=== PATIENT | male | born 1950 | race Caucasian/White ===

== ENCOUNTER 2017-11-29 13:47 | Emergency (ER) | payer MEDICARE ==
--- NOTE | 2017-11-29 17:03 | UC ---
Skin Complaint HPI - HPI Summary HPI Summary: PT HAS HAD 2-3 YEARS OF A CYSTIC LESION DISTAL RIGHT 3RD FINGER (OVERLYING DISTAL PHALANX DORSAL SURFACE) THAT COMES AND GOES. HAS HAD I&D IN THE PAST WITH CLEAR MATERIAL EXPRESSED. OVER THE PAST FEW WEEKS IT HAS BECOME LARGER IN SIZE AND LOOKS BLOODY. PAIN IS WORSE. PT DENIES ANY TRAUMA. 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 - History of Current Complaint Chief Complaint: UCUpperExtremity Time Seen by Provider: 11/29/17 15:46 Stated Complaint: FINGER PAIN Hx Obtained From: Patient Onset/Duration: Gradual Onset, Lasting Weeks, Still Present Timing: Constant Onset Severity: Moderate Current Severity: Moderate Pain Intensity: 8 Pain Scale Used: 0-10 Numeric Location: Hand (Right) - RIGHT 3RD FINGER Character: Pain, Raised Aggravating Factor(s): Touch Alleviating Factor(s): Nothing - Allergy/Home Medications Allergies/Adverse Reactions: Allergies Allergy/AdvReac Type Severity Reaction Status Date / Time No Known Allergies Allergy Verified 11/29/17 14:56 Home Medications: Home Medications Calcipotriene 0.0005 gm TP DAILY 11/29/17 [History Confirmed 11/29/17] Review of Systems Constitutional: Negative Skin: Other - LESION RIGHT 3RD FINGER Respiratory: Negative Cardiovascular: Negative Gastrointestinal: Negative Musculoskeletal: Arthralgia All Other Systems Reviewed And Are Negative: Yes PMH/Surg Hx/FS Hx/Imm Hx - Additional Past Medical History Additional PMH: PSORIASIS Endocrine History: Hypothyroidism Cardiovascular History: Hypertension Psychological History: Depression - Surgical History Surgical History: Yes Surgery Procedure, Year, and Place: UMBILICAL HERNIA; TONSILECTOMY - Family History Known Family History: Positive: Hypertension - Social History Alcohol Use: Weekly Substance Use Type: None Smoking Status (MU): Former Smoker - Immunization History Most Recent Tetanus Shot: more than 10 years Physical Exam Triage Information Reviewed: Yes Appearance: Well-Appearing, No Pain Distress, Well-Nourished Vital Signs: Initial Vital Signs Temp 98.4 F 11/29/17 14:48 Pulse 62 11/29/17 14:48 Resp 15 11/29/17 14:48 BP 132/85 11/29/17 14:48 Pulse Ox 98 11/29/17 14:48 Vital Signs Reviewed: Yes Eyes: Positive: Conjunctiva Clear ENT: Positive: Hearing grossly normal Neck: Positive: Supple Respiratory: Positive: No respiratory distress, No accessory muscle use Cardiovascular: Positive: Pulses Normal Abdomen Description: Positive: Soft Neurological: Positive: Alert Psychological: Positive: Age Appropriate Behavior Skin: Positive: Other - 6MM X 4MM CYSTIC LESION DORSAL SURFACE RIGHT 3RD FINGER OVERLYING DISTAL PHALANX Course/Dx - Course Course Of Treatment: TIME OUT DONE. I&D PERFORMED. BLOODY GELATINOUS MATERIAL EXPRESSED. FOLLOW-UP DERM IN 2 DAYS. FOLLOW-UP ORTHO TO DISCUSS DEFINITIVE TREATMENT. - Diagnoses Provider Diagnoses: CYSTIC LESION RIGHT 3RD FINGER Procedures - Incision and Drainage Site: DISTAL RIGHT 3RD FINGER Anesthesia: Other - NONE Instrument(s): Scalpel - 11 BLADE Discharge - Discharge Plan Condition: Stable Disposition: HOME Referrals: Osman Kelley MD [Primary Care Provider] - If Needed Jose Guadalupe Rosas MD [Medical Doctor] - 1 Week Additional Instructions: YOUR CYST WAS OPENED AND BLOODY GELATINOUS MATERIAL WAS EXPRESSED. KEEP YOUR DERM APPT IN 2 DAYS AND FOLLOW-UP WITH ORTHO IF EXCISION IS DESIRED.
[2017-11-29 17:08] VITALS: BP 131/74
== END 2017-11-29 17:12 | disposition home or self-care (01) ==
LOC: UCEAST 13:47
DX: L72.3 Sebaceous cyst (principal); L40.9 Psoriasis, unspecified; E03.9 Hypothyroidism, unspecified; I10 Essential (primary) hypertension; F32.9 Major depressive disorder, single episode, unspecified; Z87.891 Personal history of nicotine dependence
CPT/HCPCS: 10060; 99211; G0463

== ENCOUNTER 2018-02-19 13:42 | Day surgery (SDC) | payer MEDICARE ==
[~2018-02-19 13:42] MED LIST: Buffered Lidocaine 0.9% SYRIN* 5 ML/SYR SYRINGE INTRADERM ONE; Dexamethasone TAB* 4 MG PO ONE; DiMENhydriNATE IV* 50 MG/ML VIAL IV PUSH PRN; Famotidine TAB* 20 MG PO ONE; Morphine INJ* 2 MG/ML 1 ML CARPUJECT IV PRN; Naloxone* 0.4 MG/ML 1 ML VIAL IV PRN; Ondansetron INJ* 2 MG/ML VIAL ONE; PROCHLORPERAZINE INJ 5 MG/ML 2 ML VIAL IV PRN; fentaNYL* 50 MCG/ML 2 ML VIAL (100 MCG VIAL) IV PRN; oxyCODONE/Acetamin 5/325 MG* TAB PO PRN
[2018-02-19] MEDS ORDERED: ceFAZolin 2 GM PREMIX (*) 2 GM/50 ML BAG IVPB ONE (13:56)
[2018-02-19] MEDS ORDERED: Ondansetron ODT TAB* 4 MG ONE (13:56)
[2018-02-19] MEDS ORDERED: Dexamethasone TAB* 4 MG ONE (13:56)
[2018-02-19] MEDS ORDERED: Famotidine TAB* 20 MG ONE (13:56)
[2018-02-19] MEDS ORDERED: Midazolam* 1 MG/ML 5 ML VIAL (5 MG) ONE (14:34)
[2018-02-19] MEDS ORDERED: fentaNYL* 50 MCG/ML 2 ML VIAL (100 MCG VIAL) ONE (14:34)
[2018-02-19] MEDS ORDERED: Labetalol IV* 5 MG/ML 20 ML VIAL ONE (14:57)
[2018-02-19] MEDS ORDERED: Lidocaine 1% INJ* 10 MG/ML 30 ML SDV ONE (14:57)
[2018-02-19] MEDS ORDERED: Bupivacaine 0.25% SDV* 30 ML ONE (14:57)
[2018-02-19] MEDS ORDERED: Ketorolac INJ* 30 MG/ML 1 ML VIAL ONE (15:29)
[2018-02-19] MEDS ORDERED: Propofol* 10 MG/ML 20 ML BTL IV PUSH ONE (15:29)
[2018-02-19] MEDS ORDERED: Lidocaine 2% PF * 5 ML VIAL ONE (15:29)
[2018-02-19] MEDS ORDERED: Flumazenil* 0.1 MG/ML 5 ML MDV ONE (15:46)
[2018-02-19 16:04] VITALS: BP 133/87
--- NOTE | 2018-02-20 07:31 | OP ---
DATE OF OPERATION: 02/19/18 [facility] DATE OF : 50 SURGEON: Jose Guadalupe Rosas MD [employer] DEVELOPER: MILLICENT Alvarez. An office clerk assistant was needed for the entirety of the case to help with positioning, retraction, and utilized throughout all portions of the case. ANESTHESIOLOGIST: Dr. Horta. ANESTHESIA: General with local with MAC. PRE-OP DIAGNOSIS: Right carpal tunnel syndrome. POST-OP DIAGNOSIS: Right carpal tunnel syndrome. OPERATIVE PROCEDURE: Open right carpal tunnel release. COMPLICATIONS: None. ESTIMATED BLOOD LOSS: Minimal. TOURNIQUET TIME: 13 minutes at 250 mmHg. INDICATIONS: Brain Cain is a 67-year-old gentleman who has had a 5-year history of carpal tunnel syndrome, his symptoms more on the right side than the left side. He was seen initially in [place] and was offered treatment, but he relocated to [place] and decided to undergo treatment here. Risks and benefits of surgery were discussed at length, included but not limited to bleeding; infection; damage to nerves, vessels, surrounding structures; wound nonhealing; persistent pain; need for further surgery; scaring; stiffness; incomplete relief of symptoms; risks of anesthesia; persistent pain; and need for further surgery. DESCRIPTION OF PROCEDURE: The patient was greeted in the preoperative area by the attending surgeon. Correct extremity was marked. Consent was confirmed. The patient was then brought back to the operating suite where he was placed in the supine position on the operating table. His hand was extended on the arm table. An unsterile tourniquet was placed high on the forearm. He then underwent local monitored anesthesia care, after which the right arm was prepped and draped in the usual sterile fashion with chlorhexidine soap and alcohol wipe and a final prep with ChloraPrep. After appropriate surgical pause indicating site, side, procedure, and administration of antibiotics, the incision was injected with 10 cc of 1% lidocaine plain. The limb was then exsanguinated using an Esmarch and the tourniquet inflated to 250 mmHg. A 15 blade was then used to make an incision using the radial border of the fourth metacarpal in the center of the palm over the carpal tunnel. The 15 blade was used to make the incision. Soft tissue was carefully dissected to expose the palmar fascia which was incised, which exposed the carpal tunnel. A fresh 15 blade was then used to make the incision to break through the contents of the carpal tunnel ulnarly. Once this was done , the dissection was taken distally first to make sure that it was free and there were no areas of compression. Then proximally the dissection was taken so that the entire carpal tunnel was released, checking all the way to the wrist crease to make sure there were no other areas of compression. Once this was done, free air was used to make sure that there was no other evidence of carpal tunnel and the wrist was taken through a range of motion. There was no evidence of compression. The nerve appeared to be in good condition. There was synovitis that was apparent as well. The wound was then copiously irrigated with sterile saline. The wound was closed with 4-0 nylon in an interrupted fashion. The wound was injected with 0.25% Marcaine plain about 9 cc. Sterile dressings were applied. The tourniquet was deflated after a time of 13 minutes. Well-padded dressing was placed. His extremities were pink and well perfused. He was awoken from anesthesia and transferred to PACU in stable condition. POSTOPERATIVE PLAN: He will be allowed finger and wrist, range of motion. He can take dressing off at the end of the week and start working on gentle wrist range of motion. He should keep the incision dry until I see him back in the office. I will see him back in approximately 14 days. DVT prophylaxis considered but deferred due to no previous personal or family history. [id number]/[facility] #: [id number] ELIZABETH
== END 2018-02-19 16:28 | disposition home or self-care (01) ==
LOC: OREAST 13:42
PROVIDERS: ATTEND Orthopaedic Surgery
DX: G56.01 Carpal tunnel syndrome, right upper limb (principal); E07.9 Disorder of thyroid, unspecified; R03.0 Elevated blood-pressure reading, without diagnosis of hypertension; K21.9 Gastro-esophageal reflux disease without esophagitis
CPT/HCPCS: A9270-GY; J0690; J1885; J2250; J2704; J3010; J8540

== ENCOUNTER 2018-11-21 02:20 | Emergency (ER) | payer MEDICARE ==
[2018-11-21] MEDS ORDERED: NS 0.9% 1000 ML** 1,000 ML IV ONE (02:54)
[2018-11-21] MEDS ORDERED: Ondansetron INJ* 2 MG/ML VIAL IV ONE (02:54)
[2018-11-21] MEDS ORDERED: Morphine VIAL* 10 MG/ML 1 ML VIAL IV ONE (02:55)
[2018-11-21 03:07] LABS: ABS Basophils 0.1 10^3/ul (0-0.2); ABS Eosinophils 0.2 10^3/ul (0-0.6); ABS Lymphocytes 1.5 10^3/ul (1.0-4.8); ABS Monocytes 0.4 10^3/ul (0-0.8); ABS Neutrophils 3.7 10^3/ul (1.5-7.7); ABS Nucleated RBC 0 10^3/ul; Eosinophil % 3.3 %; Hematocrit 43 % (42-52); Hemoglobin 14.6 g/dl (14.0-18.0); Lymphocyte % 25.9 %; Mean Corpuscular HGB Conc 34 g/dl (31-36); Mean Corpuscular Hemoglobin 32 pg (27-31); Mean Corpuscular Volume 94 fL (80-94); Nucleated Red Blood Cells % 0; Platelet Count 208 10^3/ul (150-450); Red Blood Count 4.63 10^6/ul (4.00-5.40); Red Cell Distribution Width 13 % (10.5-15); White Blood Count 5.8 10^3/ul (3.5-10.8)
--- NOTE | 2018-11-21 03:13 | ED ---
Abdominal Pain/Male - HPI Summary HPI Summary: Patient is a 68 y/o M presenting to ED with complaints of right sided abdominal pain with some radiation to testicles. Pain onset suddenly at 0000 today, is characterized as dull, and has been intermittent since onset. He denies fever, N /V/D, radiation of pain to back. No PMHx of kidney stones, but patient has PMHx of cirrhosis. He is on Lisinopril as well. On triage, pain is rated 10/10, nothing is noted to aggravate/alleviate Sx. Home medications and allergies are reviewed. - History of Current Complaint Chief Complaint: EDAbdPain Stated Complaint: FLANK PAIN Time Seen by Provider: 11/21/18 02:42 Hx Obtained From: Patient Onset/Duration: Lasting Hours - since 0000 today, Still Present Timing: Intermittent, Lasting Hours - since 0000 today Severity Currently: Severe - 10/10 Pain Intensity: 10 Pain Scale Used: 0-10 Numeric - 10/10 Location: Other - right sided Radiates: Yes Radiates to: Other - testicles Character: Dull Aggravating Factor(s): Nothing Alleviating Factor(s): Nothing Associated Signs And Symptoms: Negative: Fever, Back Pain, Nausea, Vomiting, Diarrhea - Allergies/Home Medications Allergies/Adverse Reactions: Allergies Allergy/AdvReac Type Severity Reaction Status Date / Time No Known Allergies Allergy Verified 02/19/18 14:20 PMH/Surg Hx/FS Hx/Imm Hx Endocrine/Hematology History: Reports: Hx Thyroid Disease - MAGDALENO'S, Hx Anemia - AUTOIMMUNE HEMOLYTIC ANEMIA Cardiovascular History: Reports: Hx Hypertension - ON MEDICATION FOR GI History: Reports: Hx Gastroesophageal Reflux Disease - TAKES CALCIUM CARB AT NIGHT, Hx Hiatal Hernia, Hx Irritable Bowel Musculoskeletal History: Reports: Hx Arthritis - BACK Denies: Hx Osteoporosis Sensory History: Reports: Hx Contacts or Glasses - GLASSES Denies: Hx Hearing Aid Opthamlomology History: Reports: Hx Contacts or Glasses - GLASSES Psychiatric History: Reports: Hx Anxiety - HX OF, Hx Depression - HX OF - Surgical History Surgery Procedure, Year, and Place: UMBILICAL HERNIA REPAIR; TONSILECTOMY. 1991 -RHINOPLASTY. EGD-10/2017 Hx Anesthesia Reactions: No Infectious Disease History: No Infectious Disease History: Denies: Traveled Outside the [place] in Last 30 Days - Family History Known Family History: Positive: Hypertension - Social History Alcohol Use: None Alcohol Amount: 2-3 DRINKS ONE TIME PER WEEK Substance Use Type: Reports: None Substance Use Comment - Amount & Last Used: OCCASIONAL USE OF MARIJUANA Smoking Status (MU): Never Smoked Tobacco Review of Systems Negative: Fever Positive: Abdominal Pain - with radiation to testicles, no radiation to back . Negative: Vomiting, Diarrhea, Nausea All Other Systems Reviewed And Are Negative: Yes Physical Exam - Summary Physical Exam Summary: VITAL SIGNS: Reviewed. GENERAL: Patient is a well-developed and nourished male who is lying comfortable in the stretcher. Patient is not in any acute respiratory distress. HEAD AND FACE: No signs of trauma. No ecchymosis, hematomas or skull depressions. No sinus tenderness. EYES: PERRLA, EOMI x 2, No injected conjunctiva, no nystagmus. EARS: Hearing grossly intact. Ear canals and tympanic membranes are within normal limits. MOUTH: Oropharynx within normal limits. NECK: Supple, trachea is midline, no adenopathy, no JVD, no carotid bruit, no c- spine tenderness, neck with full ROM. CHEST: Symmetric, no tenderness at palpation LUNGS: Clear to auscultation bilaterally. No wheezing or crackles. CVS: Regular rate and rhythm, S1 and S2 present, no murmurs or gallops appreciated. ABDOMEN: Soft, mild RLQ tenderness is noted. No signs of distention. No rebound no guarding, and no masses palpated. Bowel sounds are normal. EXTREMITIES: FROM in all major joints, no edema, no cyanosis or clubbing. NEURO: Alert and oriented x 3. No acute neurological deficits. Speech is normal and follows commands. SKIN: Dry and warm Triage Information Reviewed: Yes Vital Signs On Initial Exam: Initial Vitals Temp Pulse Resp BP Pulse Ox 96.4 F 69 16 144/87 97 11/21/18 02:25 11/21/18 02:25 11/21/18 02:25 11/21/18 02:25 11/21/18 02:25 Vital Signs Reviewed: Yes Diagnostics - Vital Signs Vital Signs Temp Pulse Resp BP Pulse Ox 11/21/18 02:25 96.4 F 69 16 144/87 97 - Laboratory Result Diagrams: 11/21/18 03:00 11/21/18 03:00 Lab Statement: Any lab studies that have been ordered have been reviewed, and results considered in the medical decision making process. - CT abd/pel ct CT Interpretation Completed By: Radiologist Summary of CT Findings: CT ABD/PEL IMPRESSION: 1. Colonic diverticulosis with early acute sigmoid diverticulitis. 2. No obstructing stones or hydronephrosis. 3. A small hiatal hernia. This report was reviewed by ED physician. Re-Evaluation - Re-Evaluation First Eval Re-Evaluation Time: 04:19 Comment: Results of labs and tests were discussed with patient, he will be discharged to home and follow up with PCP, he is agreeable with this. Abdominal Pain Fem Course/Dx - Course Course Of Treatment: Patient is a 68 y/o M presenting to ED with complaints of right sided abdominal pain with some radiation to testicles. Pain onset suddenly at 0000 today, is characterized as dull, and has been intermittent since onset. He denies fever, N/V/D, radiation of pain to back. No PMHx of kidney stones, but patient has PMHx of cirrhosis. He is on Lisinopril as well. On physical exam RLQ tenderness is noted. Labs showed MCH 32, BUN 26, BUN/ creatinine ratio 22.8, glucose 104. UA showed trace ketones, ascorbic acid present. CT ABD/PEL IMPRESSION: 1. Colonic diverticulosis with early acute sigmoid diverticulitis. 2. No obstructing stones or hydronephrosis. 3. A small hiatal hernia. Results of labs and tests were discussed with patient, he will be discharged to home and follow up with PCP, he is agreeable with this. During ED course, patient received fluids, Flagyl 500 mg and Levaquin 500 mg PO ED ONCE - Diagnoses Provider Diagnoses: Diverticulitis Discharge - Sign-Out/Discharge Documenting (check all that apply): Patient Departure - DISCHARGE Patient Received Moderate/Deep Sedation with Procedure: No - NO PROCEDURES DONE - Discharge Plan Condition: Stable Disposition: HOME Prescriptions: Levofloxacin TAB* [Levaquin TAB*] 500 mg PO DAILY #7 tab metroNIDAZOLE [Flagyl 500 MG TAB] 500 mg PO TID #20 tab Patient Education Materials: Diverticulitis (ED) Referrals: Osman Kelley MD [Primary Care Provider] - 2 Days Additional Instructions: RETURN TO THE EMERGENCY DEPARTMENT FOR CHANGING OR WORSENING SYMPTOMS. FOLLOW UP WITH PRIMARY CARE PHYSICIAN IN 1-2 DAYS. - Attestation Statements Document Initiated by Scribe: Yes Documenting Scribe: JOSAFAT SALDIVAR Provider For Whom Scribe is Documenting (Include Credential): LUZ MARIA ENRIQUEZ MD Scribe Attestation: I, JOSAFAT SALDIVAR, scribed for LUZ MARIA ENRIQUEZ MD on 11/21/18 at 0516. Status of Scribe Document: Ready
[2018-11-21 03:22] LABS: Albumin 4.3 g/dL (3.2-5.2); Albumin/Globulin Ratio 1.7 (1-3); BUN/Creatinine Ratio 22.8 (8-20); C Reactive Protein 3.8 mg/L (<8.01); Calcium 9.5 mg/dL (8.6-10.3); EGFR African American 77.3 (>60); EGFR Non-African American 63.9 (>60); Globulin 2.6 g/dL (2-4); Magnesium 2.2 mg/dL (1.9-2.7); Total Bilirubin 0.4 mg/dL (0.2-1.0); Total Protein 6.9 g/dL (6.4-8.9)
[2018-11-21] MEDS ORDERED: Levofloxacin TAB* 500 MG PO ONE (04:20)
[2018-11-21] MEDS ORDERED: metroNIDAZOLE TAB* 250 MG PO ONE (04:20)
[2018-11-21 04:37] LABS: Urine Appearance Clear; Urine Bilirubin Negative (Negative); Urine Blood Negative (Negative); Urine Color Yellow; Urine Glucose Negative (Negative); Urine Ketones Trace (Negative); Urine Nitrite Negative (Negative); Urine Protein Negative (Negative); Urine Specific Gravity 1.023 (1.010-1.030); Urine Urobilinogen Negative (Negative)
[2018-11-21 05:17] VITALS: BP 123/76
== END 2018-11-21 05:16 | disposition home or self-care (01) ==
LOC: ED 02:20
DX: K57.32 Diverticulitis of large intestine without perforation or abscess without bleeding (principal); K44.9 Diaphragmatic hernia without obstruction or gangrene; I10 Essential (primary) hypertension; K21.9 Gastro-esophageal reflux disease without esophagitis
CPT/HCPCS: 36415; 74176; 80053; 81003; 82150; 83690; 83735; 85025; 86140; 99283; A9270-GY; J2270; J2405

== ENCOUNTER 2019-02-12 10:03 | Day surgery (SDC) | payer MEDICARE ==
--- NOTE | 2019-02-07 11:43 | HP ---
PREOPERATIVE HISTORY AND PHYSICAL: DATE OF SURGERY/ADMISSION: 02/12/19 DATE OF OFFICE VISIT/ENCOUNTER: 01/23/19 ATTENDING SURGEON: Meche Green MD * (DICTATED BY MILLICENT SHEPARD) PROCEDURE: Left small finger DIP joint fusion. HISTORY OF PRESENT ILLNESS: This is a 68-year-old male who complains of pain in his left little finger DIP joint. It has been getting worse over the last year or so. He had a mucous cyst there previously, but it resolved on its own. There was no specific injury to this finger. 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 He would like to have surgical treatment and has consented for a left small finger DIP joint fusion. We will get clearance from his primary care physician prior to proceeding with surgery. PAST MEDICAL HISTORY: 1. Psoriasis. 2. Johnson's esophagus. 3. 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 4. History of diverticulitis. 5. Atherosclerosis. 6. History of anemia. 7. Prediabetes. 8. History of MRSA in 2005. PAST SURGICAL HISTORY: 1. Hernia repair. 2. Right carpal tunnel release. 3. Tonsillectomy. 4. Rhinoplasty. CURRENT MEDICATIONS: 1. Vitamin B12, 1000 mcg twice weekly. 2. CBD oil 500 mg p.r.n. 3. Levothyroxine sodium 112 mcg daily. 4. Liothyronine sodium 5 mcg one tablet daily. 5. Lisinopril 20 mg daily. 6. Magnesium 250 mg daily. 7. Taltz 80 mg/mL 160 mg, two 80 mg injections at week 0, followed by 80 mg at weeks 2, 4, 6, 8, 10, and 12 and then 80 mg every 4 weeks. 8. Vitamin B complex 1 daily. 9. Vitamin C ER 500 mg daily. 10. Vitamin D 10,000 units daily. 11. Vitamin E 400 daily. ALLERGIES: No known drug allergies. FAMILY MEDICAL HISTORY: Psoriasis, heart disease, colon cancer. SOCIAL HISTORY: The patient is retired. 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 He denies tobacco use. He has a history of pipe smoking, but does not smoke regularly. He does smoke marijuana on occasion and he drinks alcohol on regular occasions. REVIEW OF SYSTEMS: Negative for general, cephalic, cardiovascular, respiratory , GI, , other musculoskeletal, integumentary, endocrine, neurologic, and hematologic symptoms. Infectious Disease: Positive for history of MRSA in 2005. Negative for hepatitis C, HIV. PHYSICAL EXAMINATION GENERAL: Well-developed, well-nourished, 68-year-old male, in no acute distress. VITAL SIGNS: Height 5 feet 3 inches, weight 148 pounds, pulse rate 58, and blood pressure 116/68. HEENT: Normocephalic and atraumatic. Pupils are equal, round, and reactive to light and accommodation. Extraocular movements are intact. NECK: Supple. No palpable lymph nodes. Throat is clear. PULMONARY: Lungs are clear to auscultation bilaterally. No wheezes, rales, or rhonchi. CARDIOVASCULAR: Regular rate and rhythm. S1 and S2. No murmurs, rubs, or gallops. No edema. ABDOMEN: Positive bowel sounds. Soft and nontender. NEUROLOGICAL: Alert and oriented x3. Cranial nerves II through XII are intact. Sensation is intact to light touch. MUSCULOSKELETAL: On exam of his left hand, he has slight swelling of the little finger DIP joint. He has full extension, but only about 20 to 30 degrees of flexion and it is painful. He cannot make a tight fist because he has deformity of his ring finger from an old injury. He does have full extension of his little finger. Skin is intact. Neurovascular function is intact. He has some changes in his finger nail consistent with psoriasis. 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 PLAN/RECOMMENDATIONS: The patient is scheduled to undergo a left small finger DIP joint fusion with Dr. Green on 02/12/19. He will return to the office 10 days postop for followup and suture removal. A prescription for Oneill was e- scribed to the patient's pharmacy for postoperative pain management. MILLICENT SHEPARD [id number]/[facility] #: [id number] MTDD
[~2019-02-12 10:03] MED LIST changes: -Buffered Lidocaine 0.9% SYRIN* 5 ML/SYR SYRINGE INTRADERM ONE; +Buffered Lidocaine 1% SYRIN* 1 ML/SYRINGE INTRADERM ONE; -Dexamethasone TAB* 4 MG PO ONE; -DiMENhydriNATE IV* 50 MG/ML VIAL IV PUSH PRN; -Famotidine TAB* 20 MG PO ONE; +Lactated Ringers 1000 ML Bag* 1,000 ML IV SCH; +Lidocaine 1% INJ* 10 MG/ML 30 ML SDV ONE; -Morphine INJ* 2 MG/ML 1 ML CARPUJECT IV PRN; -Naloxone* 0.4 MG/ML 1 ML VIAL IV PRN; -Ondansetron INJ* 2 MG/ML VIAL ONE; -PROCHLORPERAZINE INJ 5 MG/ML 2 ML VIAL IV PRN; -fentaNYL* 50 MCG/ML 2 ML VIAL (100 MCG VIAL) IV PRN; -oxyCODONE/Acetamin 5/325 MG* TAB PO PRN
[2019-02-12] MEDS ORDERED: ceFAZolin 2 GM PREMIX in ORs 2 GM/50 ML BAG IVPB ONE (10:09)
[2019-02-12] MEDS ORDERED: Lidocaine 1% INJ* 10 MG/ML 30 ML SDV ONE (11:53)
[2019-02-12] MEDS ORDERED: Midazolam* 1 MG/ML 5 ML VIAL (5 MG) ONE (12:02)
[2019-02-12] MEDS ORDERED: fentaNYL* 50 MCG/ML 2 ML VIAL (100 MCG VIAL) ONE (12:15)
[2019-02-12] MEDS ORDERED: Ondansetron INJ* 2 MG/ML VIAL IV PRN (12:52)
[2019-02-12] MEDS ORDERED: fentaNYL* 50 MCG/ML 2 ML VIAL (100 MCG VIAL) IV PRN (12:52)
[2019-02-12] MEDS ORDERED: Naloxone* 0.4 MG/ML 1 ML VIAL IV PRN (12:52)
[2019-02-12] MEDS ORDERED: Acetaminophen TAB* 325 MG PO PRN (12:52)
[2019-02-12] MEDS ORDERED: oxyCODONE/Acetamin 5/325 MG* TAB PO PRN (12:52)
[2019-02-12] MEDS ORDERED: Propofol* 10 MG/ML 20 ML BTL ONE (12:55)
[2019-02-12 13:16] VITALS: BP 138/62
--- NOTE | 2019-02-12 20:22 | OP ---
DATE OF OPERATION: 02/12/19 [facility] DATE OF : 50 SURGEON: Meche Green MD. ASSISTANTS: MILLICENT Hay, and MILLICENT Sommers. PRE-OP DIAGNOSIS: Left small finger DIP arthritis. POST-OP DIAGNOSIS: Left small finger DIP arthritis. OPERATIVE PROCEDURE: Left small finger DIP fusion. ESTIMATED BLOOD LOSS: Zero. TOURNIQUET TIME: About 20 minutes. INDICATIONS FOR PROCEDURE: Brain is a 68-year-old man who has painful arthritis of the left little finger DIP joint. He presents for fusion. DESCRIPTION OF PROCEDURE: The patient was brought to the operating room, was given a sedation anesthetic and a digital block with 10 cc of 1% plain lidocaine. The skin of his left hand and forearm was prepped and draped in the usual sterile fashion. The little finger was exsanguinated and a Tourni-Cot was placed. An H-shaped incision was then made on the dorsal aspect of the DIP joint. Full- thickness skin flaps were made and the collateral ligaments were incised. The articular surface of both the distal and middle phalanges was removed with a rongeur. A guidewire from the micro Acutrak set was placed through the center of the medullary canal of the middle phalanx and then driven antegrade through the distal phalanx in the central portion. The position of the guidewire was checked on C-arm in the AP and lateral views and found to be centralized. The guidewire was passed then retrograde into the central canal of the middle phalanx. We overdrilled the distal aspect of the distal phalanx with the appropriate drill and placed an 18 mm micro Acutrak screw over the guidewire while holding the 2 bones in apposition. The position of the screw on the AP and lateral views with the C-arm was excellent. The wound was irrigated. The skin edges were reapproximated with 4-0 nylon suture. The wound was dressed with Xeroform, 4 x 4, Webril, and an Alumafoam splint. The patient tolerated the procedure well and was brought to the recovery room in good condition. [id number]/[facility] #: [id number] [facility]ENTERCarrillo
== END 2019-02-12 13:29 | disposition home or self-care (01) ==
LOC: OREAST 10:03
PROVIDERS: ATTEND Orthopaedic Surgery
DX: M19.042 Primary osteoarthritis, left hand (principal); R73.03 Prediabetes; L40.9 Psoriasis, unspecified; E03.8 Other specified hypothyroidism; I10 Essential (primary) hypertension; K22.70 Barrett's esophagus without dysplasia
CPT/HCPCS: 76000; C1713; C1776; J0690; J2250; J2704; J3010

== ENCOUNTER 2019-06-07 16:53 | Emergency (ER) | payer MEDICARE ==
[2019-06-07] MEDS ORDERED: NS 0.9% 1000 ML** 1,000 ML IV ONE (17:49)
[2019-06-07] MEDS ORDERED: Ondansetron INJ* 2 MG/ML VIAL IV ONE (17:49)
--- NOTE | 2019-06-07 18:05 | ED ---
GI/ HPI - HPI Summary HPI Summary: This patient is a 68 year old M presenting to ED with a chief complaint of diarrhea since 06/04/19. The CC is described as dark black mud. Patient has not had significant fluids since 06/03/19 and is wondering where the diarrhea is coming from. Patient was seen here 06/04/19 for diverticulitis. He presented with LLQ pain then, which has since diffused across the abdomen and started to get better on 06/05/19. His diarrhea has remained constant. Patient has had diverticulitis 2x before (once in November and once in 2015). Patient is on Augmentin now after his visit on 06/04/19. The patient rates the pain 3/10 in severity. Symptoms aggravated by nothing. Symptoms alleviated by nothing. Patient reports nausea, diaphoresis, chills. Patient denies vomiting or urinary symptoms. Patient normally has beer every day, but has only had clear liquids since his symptoms started. PMHx of precancerous polyps. Patients last colonoscopy was after the last diverticulitis. FHx of colon cancer in mother. - History of Current Complaint Chief Complaint: EDNauseaVomitDiarrh Time Seen by Provider: 06/07/19 17:55 Stated Complaint: FOLLOW UP ON DIVERTICULITIS PER PT Hx Obtained From: Patient Onset/Duration: Started Days Ago - 06/04/19, Still Present Timing: Constant Severity: Mild Current Severity: Mild Pain Intensity: 3 Location of Pain: Diffuse Associated Signs and Symptoms: Positive: Negative - Diarrhea, urinary symptoms, Nausea, Diarrhea - Blacm ud, Diaphoresis, Chills. Negative: Vomiting Aggravating Factor(s): Nothing Alleviating Factor(s): Nothing - Allergy/Home Medications Allergies/Adverse Reactions: Allergies Allergy/AdvReac Type Severity Reaction Status Date / Time ciprofloxacin [From Cipro] AdvReac Mild Unknown Verified 06/07/19 16:59 Reaction Details PMH/Surg Hx/FS Hx/Imm Hx Endocrine/Hematology History: Reports: Hx Thyroid Disease - MAGDALENO'S, Hx Anemia - AUTOIMMUNE HEMOLYTIC ANEMIA- not current Cardiovascular History: Reports: Hx Hypertension - ON MEDICATION FOR GI History: Reports: Hx Gastroesophageal Reflux Disease - TAKES CALCIUM CARB AT NIGHT, Hx Hiatal Hernia, Hx Irritable Bowel - s/p diverticulitis, Other GI Disorders - diverticulitis/diverticulosis 11/2018 Musculoskeletal History: Reports: Hx Arthritis - BACK Denies: Hx Osteoporosis Sensory History: Reports: Hx Contacts or Glasses - GLASSES Denies: Hx Hearing Aid Opthamlomology History: Reports: Hx Contacts or Glasses - GLASSES Psychiatric History: Reports: Hx Anxiety - HX OF, Hx Depression - HX OF - Cancer History Hx Chemotherapy: No - Surgical History Surgery Procedure, Year, and Place: UMBILICAL HERNIA REPAIR; TONSILECTOMY. 1991 -RHINOPLASTY. EGD-10/2017. right carpal tunnel release. multiple colonoscopy with anesthesia Hx Anesthesia Reactions: No Infectious Disease History: No Infectious Disease History: Denies: Traveled Outside the [place] in Last 30 Days - Family History Known Family History: Positive: Hypertension, Other - Colon cancer - Social History Alcohol Use: Daily Alcohol Amount: 2- DRINKS ONE TIME PER day Hx Substance Use: Yes Substance Use Type: Reports: Marijuana Substance Use Comment - Amount & Last Used: OCCASIONAL USE OF MARIJUANA and CBD oil Hx Tobacco Use: No Smoking Status (MU): Never Smoked Tobacco Review of Systems Positive: Chills, Skin Diaphoresis Positive: Abdominal Pain, Diarrhea - "Black mud", Nausea. Negative: Vomiting Genitourinary: Negative - Urinary symptoms All Other Systems Reviewed And Are Negative: Yes Physical Exam - Summary Physical Exam Summary: VITAL SIGNS: Reviewed. GENERAL: Patient is a well-developed and nourished male who is lying comfortable in the stretcher. Patient is not in any acute respiratory distress. HEAD AND FACE: Normocephalic and atraumatic. EYES: PERRLA, EOMI x 2, No injected conjunctiva. EARS: Hearing grossly intact. Ear canals and tympanic membranes are WNL. MOUTH: Oropharynx within normal limits. NECK: Supple, trachea is midline, no adenopathy, no JVD. CHEST: Symmetric, no tenderness at palpation. LUNGS: Clear to auscultation bilaterally. No wheezing or crackles. CVS: RRR, S1 and S2 present, no murmurs or gallops appreciated. ABDOMEN: mild LLQ tenderness, abdomen is soft EXTREMITIES: FROM in all major joints, no edema, no cyanosis or clubbing. NEURO: Alert and oriented x 3. No acute neurological deficits. Speech is normal. SKIN: Dry and warm. Triage Information Reviewed: Yes Vital Signs On Initial Exam: Initial Vitals Temp Pulse Resp BP Pulse Ox 98.1 F 80 16 154/107 97 06/07/19 16:55 06/07/19 16:55 06/07/19 16:55 06/07/19 16:55 06/07/19 16:55 Vital Signs Reviewed: Yes Diagnostics - Vital Signs Vital Signs Temp Pulse Resp BP Pulse Ox 06/07/19 16:55 98.1 F 80 16 154/107 97 - Laboratory Result Diagrams: 06/07/19 18:17 06/07/19 18:17 Lab Statement: Any lab studies that have been ordered have been reviewed, and results considered in the medical decision making process. Re-Evaluation - Re-Evaluation First Eval Re-Evaluation Time: 19:30 Change: Improved Comment: We discussed new results and plan for discharge home. GIGU Course/Dx - Course Course Of Treatment: Patient is 89 y/o M presenting with diarrhea for the last three days with hx diverticulitis 2x. His diarrhea has improved despite the continuation of the diarrhea. Blood work reveals improvement of CRP, there is no evidence of anemia, and the stool occult is negative for blood. We will continue Augmentin, and he will keep up with fluid use. He is diagnosed with diverticulitis and is given instructions for fluid intake and Augmentin use. Patient understands and agrees with this plan. - Diagnoses Provider Diagnoses: Diverticulitis Discharge ED - Sign-Out/Discharge Documenting (check all that apply): Patient Departure - Patient will be discharged home. Patient Received Moderate/Deep Sedation with Procedure: No - Discharge Plan Condition: Fair Disposition: HOME Prescriptions: Amoxicillin/Clavulanate TAB* [Augmentin TAB 875*] 875 mg PO BID #20 tab Patient Education Materials: Diverticulitis (ED) Referrals: Karo Arias MD [Primary Care Provider] - 3 Days Additional Instructions: Start by drinking clear liquids and then try to advance with time. Please take Augmentin as prescribed. Follow up with your primary care provider in 2-3 days. Return to the emergency department for any new or worsening symptoms. - Billing Disposition and Condition Condition: FAIR Disposition: Home - Attestation Statements Document Initiated by Scribe: Yes Documenting Scribe: Alok Parham Provider For Whom Scribe is Documenting (Include Credential): Jackeline Dawn MD Scribe Attestation: Alok Gillette, scribed for Jackeline Dawn MD on 06/08/19 at 1431. Scribe Documentation Reviewed: Yes Provider Attestation: The documentation as recorded by the scribe, Alok Parham accurately reflects the service I personally performed and the decisions made by me, Jackeline Dawn MD Status of Scribe Document: Viewed
[2019-06-07] MEDS ORDERED: Pantoprazole IV* 40 MG IV ONE (18:08)
[2019-06-07 18:29] LABS: ABS Eosinophils 0.1 10^3/ul (0-0.6); ABS Monocytes 0.7 10^3/ul (0-0.8); ABS Neutrophils 4.3 10^3/ul (1.5-7.7); Hematocrit 44 % (42-52); Hemoglobin 14.5 g/dL (14.0-18.0); Lymphocyte % 16.5 %; Mean Corpuscular HGB Conc 33 g/dL (31-36); Mean Corpuscular Hemoglobin 30 pg (27-31); Mean Corpuscular Volume 90 fL (80-94); Mean Platelet Volume 8.5 fL (7.4-10.4); Platelet Count 224 10^3/uL (150-450); Red Blood Count 4.87 10^6 /uL (4.18-5.48); Red Cell Distribution Width 15 % (10-15); White Blood Count 6.2 10^3/uL (3.5-10.8)
[2019-06-07 18:35] LABS: INR 1.05 (0.82-1.09)
[2019-06-07 18:50] LABS: Albumin 4.5 g/dL (3.2-5.2); Albumin/Globulin Ratio 1.4 (1-3); BUN/Creatinine Ratio 12.2 (8-20); C Reactive Protein 76.23 mg/L (<8.01); Calcium 9.7 mg/dL (8.6-10.3); EGFR African American 70.8 (>60); EGFR Non-African American 58.5 (>60); Globulin 3.3 g/dL (2-4); Potassium 4.3 mmol/L (3.5-5.0); Total Bilirubin 0.6 mg/dL (0.2-1.0); Total Protein 7.8 g/dL (6.4-8.9)
[2019-06-07 19:18] LABS: Urine Appearance Clear; Urine Bacteria Absent (Absent); Urine Bilirubin Negative (Negative); Urine Blood Negative (Negative); Urine Color Yellow; Urine Glucose Negative (Negative); Urine Ketones 1+ (Negative); Urine Nitrite Negative (Negative); Urine Protein 1+(30 mg/dL) (Negative); Urine Red Blood Cell 1+(3-5/hpf) (Absent); Urine Squamous Epithelial Cell Present (Absent); Urine Urobilinogen Negative (Negative); Urine White Blood Cell Absent (Absent)
[2019-06-07 20:04] VITALS: BP 136/80
== END 2019-06-07 20:03 | disposition home or self-care (01) ==
LOC: ED 16:53
DX: K57.92 Diverticulitis of intestine, part unspecified, without perforation or abscess without bleeding (principal); E06.3 Autoimmune thyroiditis; D64.9 Anemia, unspecified; I10 Essential (primary) hypertension; K21.9 Gastro-esophageal reflux disease without esophagitis; F41.9 Anxiety disorder, unspecified; F32.9 Major depressive disorder, single episode, unspecified; Z79.899 Other long term (current) drug therapy; Z88.1 Allergy status to other antibiotic agents
CPT/HCPCS: 36415; 80053; 81003; 81015; 82270; 83605; 83690; 85025; 85610; 86140; 87040; 96361; 96374; 96375; 99283; J2405

== ENCOUNTER → 2019-09-04 10:00 | Day surgery (SDC) | payer MEDICARE ==
[~2019-09-04 10:00] MED LIST changes: +Dexamethasone IV* 4 MG/ML 1 ML (4 MG) IV SLOW PU ONE; +Dexamethasone IV* 4 MG/ML 1 ML (4 MG) ONE; +Famotidine IV* 10 MG/ML 2 ML (20 mg) IV ONE; +Famotidine IV* 10 MG/ML 2 ML (20 mg) ONE; +Glycopyrrolate IV* 0.2 MG/ML 1 ML VIAL ONE; +KETAMINE HCL* 50 MG/ML 10 ML VIAL ONE; -Lidocaine 1% INJ* 10 MG/ML 30 ML SDV ONE; +Midazolam* 1 MG/ML 2 ML VIAL (2 MG) ONE; +Naloxone* 0.4 MG/ML 1 ML VIAL IV PRN; +Neostigmine Methylsulfate* 3 MG/3 ML SYRINGE ONE; +Ondansetron INJ* 2 MG/ML VIAL IV PRN; +Ondansetron INJ* 2 MG/ML VIAL ONE; +Propofol* 10 MG/ML 20 ML BTL ONE; +Propofol* 500 MG/50 ML BTL ONE; +Rocuronium* 10 MG/ML VIAL ONE; +ceFAZolin 2 GM in NS PREMIX(*) 2 GM/100 ML BAG IVPB ONE; +fentaNYL* 50 MCG/ML 2 ML VIAL (100 MCG VIAL) IV PRN; +fentaNYL* 50 MCG/ML 2 ML VIAL (100 MCG VIAL) ONE; +oxyCODONE/Acetamin 5/325 MG* TAB ONE
[2019-09-04 15:40] VITALS: BP 151/84
--- NOTE | 2019-09-04 20:56 | OP ---
CC: Dr. Karo Arias; [facility] OPERATIVE REPORT: DATE OF OPERATION: 09/04/19 DATE OF : 50 SURGEON: Jacobo Golden MD FILE KEEPER: Malorie Hickman NP ANESTHESIOLOGIST: Dr. Palmer. ANESTHESIA: General anesthesia. PRE-OP DIAGNOSIS: Bilateral inguinal hernias. POST-OP DIAGNOSIS: Bilateral inguinal hernias. OPERATIVE PROCEDURE: Laparoscopic bilateral inguinal hernia repair with mesh. ESTIMATED BLOOD LOSS: Minimal. FLUIDS: Minimal crystalloid fluid given. SPECIMENS: None. DESCRIPTION OF PROCEDURE: The patient was identified in the preoperative area. He was marked approjune tiwari, taken to the operating room and placed on the operating table in supine position. Preoperat monica antibiotics were given. Sequential devices were placed on bilateral lower extremities. General anesthesia was induced and the patient's abdomen was clipped of hair and prepped and draped in standa rd surgical fashion. A time out was performed. An infraumbilical incision was made. This was deepened down to the anterior fascia on the right, whi ch was incised and the rectus pillar retracted laterally and entry into the preperitoneal plane was m lambert. Finger dissection was carried out and a blunt 12-mm trocar was inserted. Laparoscope was inser adore through this and after the preperitoneal space was allowed to insufflate to a pressure of 12 mmHg , blunt camera dissection was carried out down to the pubic symphysis. We exposed portions of the Co oper's bilaterally and we were able to place two 5-mm along the lower midline. Additional dissection was carried out to make the space larger. We were able to expose Abram's liga ment on the left. Epigastric vessels were identified and maintained anteriorly and the space of Bogr os was cleared laterally. The peritoneum extending towards the indirect space was bluntly dissected from the cord structures. The cord structures were skeletonized and a large lipoma of the cord reduc ed. There was no evidence of a direct hernia. We then turned our attention to the left side. We cleared off Abram's ligament. There was no eviden ce of a direct hernia. Epigastric vessels again maintained anteriorly and the space of Bogros was cl eared laterally. A hernia sac extending towards the indirect space was taken down and stripped from the spermatic structures, which were skeletonized. A lipoma of the cord was reduced, but not ligated . Next, a large Bard 3DMax mesh was placed for the left side placement. We placed this over the full m yopectineal orifice. It should be noted that there was a large lymph node approximately 2 cm overlyi ng the femoral vessels. This was abutting the mesh as we placed it, tacked at the Abram's ligament and also laterally. A medium Bard 3DMax mesh was then placed on the right side, but we were still ab le to cross these in the midline and a tack was midline and also at Abram's and laterally. The perit alaniz plane was allowed to collapse. Trocars were removed under direct vision. We then incised the posterior fascia and the peritoneum and entered into the abdomen. We placed the trocar bluntly and a llowed the abdomen to insufflate to pressure of 15 mmHg. There was some gas in the abdomen upon entr y. We placed the patient in reverse Trendelenburg. The mesh on the right appeared intact without an y wrinkling. The mesh on the left showed some wrinkling laterally as well as a small opening in the peritoneum. Two 5-mm trocars were placed in the midline and then we were able to unfurl the mesh lat erally and used a 5-mm clip employment manager to reapproximate the peritoneum at the small 2-mm defect. The ab domen was allowed to collapse. Trocars were removed under direct vision and anterior fascia was reap proximated with 0 Vicryl in a [id number] fashion. We then irrigated and then closed all 3 skin incisions with 4-0 Monocryl subcuticular sutures followed by Steri-Strips and sterile dressings. The patient tolerated the procedure well and was woken up in the OR and transferred to the PACU in stabl e condition. [id number]/[facility] #: [id number]
== END | disposition home or self-care (01) ==
LOC: OR 10:00
PROVIDERS: ATTEND Surgery
DX: K40.20 Bilateral inguinal hernia, without obstruction or gangrene, not specified as recurrent (principal); E78.5 Hyperlipidemia, unspecified; Z87.891 Personal history of nicotine dependence; E78.00 Pure hypercholesterolemia, unspecified; K21.9 Gastro-esophageal reflux disease without esophagitis; N18.3 Chronic kidney disease, stage 3 (moderate); I12.9 Hypertensive chronic kidney disease with stage 1 through stage 4 chronic kidney disease, or unspecified chronic kidney disease; L40.9 Psoriasis, unspecified
CPT/HCPCS: A9270-GY; C1781; J0690; J1100; J2250; J2405; J2704; J2710; J3010

== ENCOUNTER 2021-02-09 10:40 | Observation (INO) ==
[2021-02-09] MEDS ORDERED: NS 0.9% 1000 ml BAG 1,000 ML IV ONE (11:44)
[2021-02-09] MEDS ORDERED: Thiamine 100 MG/ML 2 ml VIAL 100 MG, Folic Acid IV 1 MG, Multiple Vitamin IV ADULT 10 M... IV ONE (11:44)
[2021-02-09] MEDS ORDERED: Thiamine 100 MG/ML 2 ml VIAL (200 mg) ONE (11:57)
[2021-02-09] MEDS ORDERED: D5NS 0.9% 1000 ml BAG 1,000 ML IV ONE (11:57)
[2021-02-09 12:23] LABS: ABS Eosinophils 0.1 10^3/ul (0-0.6); ABS Lymphocytes 0.8 10^3/ul (1.0-4.8); ABS Monocytes 0.6 10^3/ul (0-0.8); ABS Neutrophils 6.2 10^3/ul (1.5-7.7); Hematocrit 42 % (42-52); Hemoglobin 14.8 g/dL (14.0-18.0); Lymphocyte % 10.4 %; Mean Corpuscular HGB Conc 35 g/dL (31-36); Mean Corpuscular Hemoglobin 33 pg (27-31); Mean Corpuscular Volume 95 fL (80-94); Mean Platelet Volume 8.4 fL (7.4-10.4); Platelet Count 211 10^3/uL (150-450); Red Blood Count 4.48 10^6 /uL (4.18-5.48); Red Cell Distribution Width 14 % (10-15); White Blood Count 7.7 10^3/uL (3.5-10.8)
[2021-02-09 12:45] LABS: Albumin 4.5 g/dL (3.2-5.2); Albumin/Globulin Ratio 1.6 (1-3); C Reactive Protein 21.04 mg/L (<8.01); Calcium 9.4 mg/dL (8.6-10.3); EGFR African American 69.1 (>60); EGFR Non-African American 57.1 (>60); Globulin 2.8 g/dL (2-4); Potassium 4.6 mmol/L (3.5-5.0); Total Bilirubin 0.5 mg/dL (0.2-1.0); Total Protein 7.3 g/dL (6.4-8.9)
[2021-02-09] MEDS ORDERED: Ondansetron 4 mg VIAL 2 MG/ML 2 ml VIAL IV PRN (14:58)
[2021-02-09] MEDS ORDERED: Piperacillin/Tazobac ADVAN 3.375 GM in NS 0.9% 100 ml BAG 100 ML IV ONE (14:58)
[2021-02-09] MEDS ORDERED: Zosyn per Pharmacy NOTE FOLLOW UP SCH (15:00)
[2021-02-09] MEDS ORDERED: Morphine 2 MG/ML SYRINGE IV PRN (15:27)
[2021-02-09] MEDS ORDERED: Iodixanol (CONTRAST) 320 MG/ML 100 ML SDV IV ONE (16:48)
[2021-02-09] MEDS ORDERED: Enoxaparin 40 MG/0.4 ML SYR SUBCUT SCH (17:00)
[2021-02-09 18:29] LABS: Folate 17.93 ng/mL (5.90-24.80)
[2021-02-09] MEDS ORDERED: CMCS:Alfuzosin ER 10 mg TAB.ER (NF) 10 MG TAB.ER PO SCH (22:00)
[2021-02-10] MEDS: ZOSYN 3.375 GM Q8H per EXTENDED INFUSION IV SCH ×2 (00:11→07:50)
[2021-02-10 11:38] VITALS: BP 148/78
== END 2021-02-10 13:45 | disposition home or self-care (01) ==
LOC: MED 10:40 → ED 10:40
PROVIDERS: ADMIT Hospitalist; ATTEND Internal Medicine

== ENCOUNTER 2021-05-05 10:20 | Inpatient (IN) ==
[~2021-05-05 10:20] MED LIST changes: +Buffered Lidocaine 1% SYRIN 1 ml INTRADERM ONE; -Buffered Lidocaine 1% SYRIN* 1 ML/SYRINGE INTRADERM ONE; -Dexamethasone IV* 4 MG/ML 1 ML (4 MG) IV SLOW PU ONE; -Dexamethasone IV* 4 MG/ML 1 ML (4 MG) ONE; +DiMENhydriNATE IV 50 mg/ml 1 ml VIAL IV PUSH ONE; -Famotidine IV* 10 MG/ML 2 ML (20 mg) IV ONE; -Famotidine IV* 10 MG/ML 2 ML (20 mg) ONE; -Glycopyrrolate IV* 0.2 MG/ML 1 ML VIAL ONE; +HYDROmorphone 1 MG/1 ML SYRINGE IV PRN; -KETAMINE HCL* 50 MG/ML 10 ML VIAL ONE; -Lactated Ringers 1000 ML Bag* 1,000 ML IV SCH; +Lactated Ringers 1000 ml BAG 1,000 ML IV SCH; +Lidocaine 2% PF 5 ML VIAL ONE; +Midazolam 2 mg/2 ml VIAL 1 mg/ml 2 ml VIAL (2 mg) ONE; -Midazolam* 1 MG/ML 2 ML VIAL (2 MG) ONE; +Naloxone 0.4 mg VIAL 0.4 mg/ml 1 ml VIAL IV PRN; -Naloxone* 0.4 MG/ML 1 ML VIAL IV PRN; -Neostigmine Methylsulfate* 3 MG/3 ML SYRINGE ONE; +Ondansetron 4 mg VIAL 2 MG/ML 2 ml VIAL IV PRN; -Ondansetron INJ* 2 MG/ML VIAL IV PRN; -Ondansetron INJ* 2 MG/ML VIAL ONE; +Propofol 10 MG/ML 20 ML BTL ONE; -Propofol* 10 MG/ML 20 ML BTL ONE; -Propofol* 500 MG/50 ML BTL ONE; +Rocuronium 50 mg VIAL 10 mg/ml 5 ml VIAL (50 mg) ONE; -Rocuronium* 10 MG/ML VIAL ONE; -ceFAZolin 2 GM in NS PREMIX(*) 2 GM/100 ML BAG IVPB ONE; +fentaNYL 100 mcg/2 ml 50 MCG/ML VIAL IV PRN; +fentaNYL 250 mcg/5 ml 50 MCG/ML 5 ml VIAL (250 MCG) ONE; -fentaNYL* 50 MCG/ML 2 ML VIAL (100 MCG VIAL) IV PRN; -fentaNYL* 50 MCG/ML 2 ML VIAL (100 MCG VIAL) ONE; -oxyCODONE/Acetamin 5/325 MG* TAB ONE
[2021-05-05] MEDS ORDERED: Heparin 5000 UNITS/ML 1 mL VIAL ONE (10:40)
[2021-05-05] MEDS ORDERED: DiMENhydriNATE IV 50 mg/ml 1 ml VIAL ONE (10:57)
[2021-05-05] MEDS ORDERED: Ertapenem 1 GM in NS 0.9% 50 ML IVPB ONE (11:00)
[2021-05-05] MEDS ORDERED: Bupivacaine 0.25% EPI 200,000 30 ML SDV ONE (11:11)
[2021-05-05] MEDS ORDERED: Rocuronium 50 mg VIAL 10 mg/ml 5 ml VIAL (50 mg) ONE ×3 (12:06→15:05)
[2021-05-05] MEDS ORDERED: HYDROmorphone 1 MG/1 ML SYRINGE ONE (12:13)
[2021-05-05] MEDS ORDERED: Dexamethasone IV 4 MG/ML VIAL 1 ml VIAL ONE (12:32)
[2021-05-05] MEDS ORDERED: Phenylephrine 40 mcg/mL 10mL (400mcg) SYRINGE ONE (12:32)
[2021-05-05] MEDS ORDERED: EPHEDrine (Pressors) 50 MG/ML VIAL ONE (12:32)
[2021-05-05] MEDS ORDERED: fentaNYL 250 mcg/5 ml 50 MCG/ML 5 ml VIAL (250 MCG) ONE (13:28)
[2021-05-05] MEDS ORDERED: Ketamine HCL 50 mg/ml 10 ml VIAL (500 MG) ONE (14:20)
[2021-05-05] MEDS ORDERED: Ondansetron 4 mg VIAL 2 MG/ML 2 ml VIAL ONE (15:33)
[2021-05-05] MEDS ORDERED: Morphine PCA ADULT 5 MG/ML 30 ML PCA SCH (16:15)
[2021-05-05] MEDS ORDERED: HYDROmorphone PCA 1 MG/ML Titrat per Protocol PCA SCH (17:00)
[2021-05-05] MEDS ORDERED: Acetaminophen IV 1 GM/100ML 100 ML IV ONE ×2 (17:08)
[2021-05-06] MEDS: Lactated Ringers 1000 ml BAG 1,000 ML IV SCH ×3 (00:42→16:28)
[2021-05-06 04:36] LABS: ABS Lymphocytes 0.7 10^3/ul (1.0-4.8); ABS Monocytes 0.6 10^3/ul (0-0.8); Hematocrit 40 % (42-52); Hemoglobin 13.8 g/dL (14.0-18.0); Lymphocyte % 6.6 %; Mean Corpuscular HGB Conc 35 g/dL (31-36); Mean Corpuscular Hemoglobin 33 pg (27-31); Mean Corpuscular Volume 96 fL (80-94); Platelet Count 184 10^3/uL (150-450); Red Blood Count 4.14 10^6 /uL (4.18-5.48); Red Cell Distribution Width 13 % (10-15); White Blood Count 10.3 10^3/uL (3.5-10.8)
[2021-05-06 04:56] LABS: Calcium 8.2 mg/dL (8.6-10.3); EGFR African American 66.6 (>60); EGFR Non-African American 55.1 (>60); Magnesium 1.7 mg/dL (1.9-2.7); Phosphorus 4.1 mg/dL (2.5-5.0); Potassium 4.8 mmol/L (3.5-5.0)
[2021-05-06] MEDS: Heparin 5000 UNITS/ML 1 mL VIAL SUBCUT SCH ×3 (05:07→22:51)
[2021-05-06] MEDS: Ondansetron 4 mg VIAL 2 MG/ML 2 ml VIAL IV PRN ×2 (06:35→10:13)
[2021-05-06] MEDS ORDERED: Magnesium Sulfate IV 1GM/100ML 1 GM/100 ML BAG IV ONE (09:56)
[2021-05-07] MEDS: Lactated Ringers 1000 ml BAG 1,000 ML IV SCH ×3 (00:19→16:29)
[2021-05-07] MEDS: Heparin 5000 UNITS/ML 1 mL VIAL SUBCUT SCH ×3 (06:00→21:41)
[2021-05-07 06:15] LABS: ABS Eosinophils 0.1 10^3/ul (0-0.6); ABS Lymphocytes 0.8 10^3/ul (1.0-4.8); ABS Monocytes 0.6 10^3/ul (0-0.8); ABS Neutrophils 5.1 10^3/ul (1.5-7.7); Eosinophil % 1.1 %; Hematocrit 36 % (42-52); Hemoglobin 12.6 g/dL (14.0-18.0); Lymphocyte % 12.4 %; Mean Corpuscular HGB Conc 35 g/dL (31-36); Mean Corpuscular Hemoglobin 34 pg (27-31); Mean Corpuscular Volume 97 fL (80-94); Mean Platelet Volume 8.3 fL (7.4-10.4); Platelet Count 155 10^3/uL (150-450); Red Blood Count 3.72 10^6 /uL (4.18-5.48); Red Cell Distribution Width 13 % (10-15); White Blood Count 6.6 10^3/uL (3.5-10.8)
[2021-05-07 06:40] LABS: Calcium 8.3 mg/dL (8.6-10.3); EGFR African American 83.6 (>60); EGFR Non-African American 69.1 (>60); Magnesium 1.9 mg/dL (1.9-2.7); Phosphorus 2.1 mg/dL (2.5-5.0); Potassium 4.3 mmol/L (3.5-5.0)
[2021-05-07] MEDS ORDERED: HYDROmorphone 0.5 MG/0.5 ML SYRINGE IV SLOW PU PRN (08:38)
[2021-05-07] MEDS ORDERED: Potassium Phosphate IV 10 MMOLE in NS 0.9% 250 ml 250 ML IVPB ONE (10:00)
[2021-05-07] MEDS: oxyCODONE/Acetamin 5/325 mg TAB PO PRN (14:17)
[2021-05-07] MEDS: CMCS: Alfuzosin ER 10 mg TAB.ER (NF) 10 MG TAB.ER PO SCH (20:41)
[2021-05-08] MEDS: Lactated Ringers 1000 ml BAG 1,000 ML IV SCH ×3 (00:07→16:03)
[2021-05-08] MEDS: Heparin 5000 UNITS/ML 1 mL VIAL SUBCUT SCH ×3 (05:41→22:11)
[2021-05-08] MEDS: oxyCODONE/Acetamin 5/325 mg TAB PO PRN ×2 (08:07→20:04)
[2021-05-08] MEDS: CMCS: Alfuzosin ER 10 mg TAB.ER (NF) 10 MG TAB.ER PO SCH (20:05)
[2021-05-09] MEDS: Lactated Ringers 1000 ml BAG 1,000 ML IV SCH
[2021-05-09] MEDS: Heparin 5000 UNITS/ML 1 mL VIAL SUBCUT SCH (05:35)
[2021-05-09 11:08] VITALS: BP 152/83
== END 2021-05-09 13:10 | disposition home or self-care (01) | DRG 331 ==
LOC: AA 10:20 → SSU 17:58
PROVIDERS: ADMIT Surgery; ATTEND Surgery